=== PATIENT | female | born 1960 | race Two or more races ===

== ENCOUNTER → 2017-08-01 | Day surgery (SDC) | payer OTHER ==
[~2017-08-01] VITALS: Ht 162.6 cm; Wt 86.2 kg
[2017-08-01 07:30] VITALS: BP 120/71
[2017-08-01 10:41] VITALS: BP 112/76
== END | disposition home or self-care (01) ==
LOC: GI 06:55 → OR 08:00 → GI 08:00
PROVIDERS: Internal Medicine Gastroenterology
PROC: 0DB68ZX Excision of Stomach, Via Natural or Artificial Opening Endoscopic, Diagnostic (ICD-10-PCS; principal; 2017-08-01 08:30)
PROC: 0DJD8ZZ Inspection of Lower Intestinal Tract, Via Natural or Artificial Opening Endoscopic (ICD-10-PCS; 2017-08-01 08:30)
DX: R10.9 Unspecified abdominal pain (principal); K59.00 Constipation, unspecified
CPT/HCPCS: 43235; 45378; J1200; J1610; J2250; J2310; J3010; J3490